=== PATIENT | male | born 1975 | race Caucasian/White ===

== ENCOUNTER 2017-02-09 17:40 | Emergency (ER) | payer SELFPAY ==
[~2017-02-09 17:40] MED LIST: ACETAMINOPHEN500 M4 PO; ADVIL200 M1 PO; IBUPROFEN200 MG; NORCO 5-325 TA1 EACH PO
[2017-02-09] MEDS ORDERED: OMEPRAZOLE20 M4 PO (17:57)
[2017-02-09] MEDS ORDERED: NORCO 5-325 TA1 EACH PO (19:11)
== END 2017-02-09 19:20 ==
LOC: EDMED 17:40
DX: M25.512 Pain in left shoulder (principal); Z90.89 Acquired absence of other organs